=== PATIENT | male | born 2000 | race Hispanic/Latino ===

== ENCOUNTER 2024-06-16 14:17 | Emergency (ER) | payer SELFPAY ==
[2024-06-16 14:20] VITALS: BP 143/106
--- NOTE | 2024-06-16 15:06 | ED.GENMED ---
History of Present Illness
General
Chief Complaint: Dental Problem
Source: patient
Exam Limitations: none
Time Seen by Provider: 06/16/24 14:48
Nursing documentation reviewed up to this point in time: agreed with
History of Present Illness
History of Present Illness:
24-year-old male without significant past medical history presenting to the emergency department today with concerns of left upper dental discomfort over the past few days has had severe pain making difficult to sleep over the past night or 2.
Denies any trouble swallowing or breathing no fevers no significant swelling.
Review of Systems
Review of Systems
Allergies reviewed?: Yes
All Other Systems: ROS reviewed and negative except as documented in HPI and ROS
Phy Exam
Physical Exam
Physical Exam:
GENERAL: Alert , in no apparent distress
EYE: pupils equal and reactive
NECK: Supple, no significant adenopathy.
ENT: Dental carry to the left maxillary premolar no surrounding redness or swelling to the gum tongue no swelling to the posterior pharynx or remainder of the dental mucosa. o/p clr, mmm.
CARDIAC: Regular rate and rhythm .
LUNGS: Clear breath sounds bilaterally, no acute respiratory distress, no wheezes/rales/rhonchi
ABDOMEN: Soft, without focal tenderness, no r/g, no cvat
NEUROLOGICAL: Alert and oriented, no focal neuro deficits
SKIN: Warm and dry, skin intact.
MUSCULOSKELETAL: No edema, well perfused.
PSYCH: Normal and appropriate interaction.
Course
Orders/Labs/Results
Orders:
Orders
06/16/24 14:58
Acetaminophen [Tylenol] 650 mg PO NOW STA
Ibuprofen [Motrin] 600 mg PO NOW STA
Penicillin V Potassium [Pen Vk] 500 mg PO NOW STA
Vital Signs
Initial and Last Documented VS:
Initial Vital Signs
Temp Pulse Resp BP Pulse Ox
98.5 F 102 18 143/106 98
06/16/24 14:20 06/16/24 14:20 11/30/24 14:20 06/16/24 14:20 06/16/24 14:20
Last Documented Vital Signs
Temp Pulse Resp BP Pulse Ox
98.5 F 102 18 143/106 98
06/16/24 14:20 06/16/24 14:20 06/16/24 14:20 06/16/24 14:20 06/16/24 14:20
MDM/Problems Addressed
MDM/Problems Addressed:
24-year-old male presenting to the emergency department today with concerns of left upper dental discomfort over the past few days. Patient appears to have a cavity patient with likely discomfort from dental carry versus early pulpitis. Patient
started on antibiotic otherwise given medications for discomfort otherwise will follow-up closely with dental as an outpatient. Return precautions given.
*Critical Care Note
Total Time (30-74mins, 75-104mins- exclusive of procedures): Not Applicable
ED Attending Note
-
Portions of this chart may have been created with voice recognition software.� Occasional wrong word or��sound alike� substitutions may have occurred due to the inherent limitations of voice recognition software.
Discharge Plan
Departure
Patient Disposition: Home (Routine Discharge)
Date of Disposition: 06/16/24
Time of Disposition: 15:13
Patient with high blood pressure during this ER visit?: No
Condition: Good
Covid-19: Not Applicable
Discharge Problem:
Dental caries, Acute pulpitis
Instructions: Dental Pain (DC)
Prescriptions:
New
penicillin V potassium 500 mg tablet
500 mg PO TID 7 Days Qty: 21 0RF
ibuprofen 600 mg tablet
600 mg PO Q6H PRN (Reason: Pain) Qty: 14 0RF
oxycodone-acetaminophen [Percocet] 5-325 mg tablet
1 tab PO Q6H PRN (Reason: Pain) Qty: 7 0RF
Activity Restrictions/Additional Instructions:
You came to the emergency department today with concerns of dental discomfort. Please take the prescribed medications. Please do not drive or operate machinery while taking the Percocet as this can cause drowsiness. Please have close with a
dentist in the next few days. Return to the emergency department any worsening, new or concerning symptoms.
[facility] [phone]
[facility] [phone]
Interventions
Interventions:
*Risk Screen - Suicide Last Done: 06/16/24 14:20
*General Assessment Last Done: 06/16/24 14:20
*Neglect/Abuse Screening Last Done: 06/16/24 14:20
*ED COVID-19 Vaccine History Last Done: 06/16/24 14:20
Discharge Date and Time
Print Language: MAORI
[2024-06-16] MEDS: TYLENOL 650 MG PO (15:22)
[2024-06-16] MEDS: MOTRIN 600 MG PO (15:22)
[2024-06-16] MEDS: PEN VK 500 MG PO (15:22)
== END 2024-06-16 15:55 | disposition home or self-care (01) ==
LOC: EMR 14:17
PROVIDERS: EMERGENCY PHYSICIAN Emergency Medicine
DX: K08.89 Other specified disorders of teeth and supporting structures (principal); K02.9 Dental caries, unspecified; K04.01 Reversible pulpitis
CPT/HCPCS: 99283

== ENCOUNTER → 2025-04-09 10:53 | Outpatient (REF) | payer OTHER, SELFPAY ==
[2025-04-09 12:16] LABS: Hematocrit 44.0 % (39.0-52.0); Hemoglobin 14.6 g/dL (13.0-18.0); Mean Corp Hgb Conc. 33.2 g/dL (33.0-37.0); Mean Corpuscular Volume 84.1 fL (80.0-94.0); Nucleated Red Blood Cells % 0 % (-); Platelet Count 188 10^3/uL (130-400); Red Cell Dist. Width 13.9 % (11.5-14.5)
[2025-04-09 12:43] LABS: ALT (SGPT) 21 U/L (0-50); AST (SGOT) 20 U/L (17-59); Albumin 5.3 g/dl (3.5-5.0); Alkaline Phosphatase 42 U/L (38-126); Blood Urea Nitrogen 12 mg/dl (9-20); Calcium 9.8 mg/dl (8.4-10.2); Carbon Dioxide 28 mmol/L (22-30); Chloride 104 mmol/L (98-107); Glucose 111 mg/dl (70-99); Magnesium 2.0 mg/dl (1.6-2.3); Potassium 4.7 mmol/L (3.5-5.1); Sodium 142 mmol/L (135-145); Total Protein 8.2 g/dl (6.3-8.2); eGFR > 60.00
[2025-04-09 13:26] LABS: Glycohemoglobin (HgbA1c) 5.9 % (4.0-5.6)
== END ==
LOC: REG 10:53
PROVIDERS: ATTENDING PHYSICIAN Student in an Organized Health Care Education/Training Program
DX: R11.2 Nausea with vomiting, unspecified (principal)
CPT/HCPCS: 36415; 80053; 83013; 83036; 83735; 84443; 85025